=== PATIENT | female | born 1975 | race Caucasian/White ===

== ENCOUNTER 2017-01-08 10:31 | Emergency (ER) | payer OTHER ==
[~2017-01-08] VITALS: Ht 172.7 cm; Wt 133.8 kg
[~2017-01-08 10:31] MED LIST: CIPROFLOXACIN500 M1 PO; IRON325 PO; LIDOCAINE VISC100 ML MM; NOHOMEMEDICATIONS; ONE DAILY MULT1 EAC2 PO; TRAMADOL 50 MG50 MG PO
== END 2017-01-08 12:59 | disposition home or self-care (01) ==
LOC: ER 10:31
DX: S83.8X2A Sprain of other specified parts of left knee, initial encounter (principal); Z91.040 Latex allergy status; Z88.0 Allergy status to penicillin; Z88.5 Allergy status to narcotic agent; Z88.8 Allergy status to other drugs, medicaments and biological substances; X50.0XXA Overexertion from strenuous movement or load, initial encounter; Y93.89 Activity, other specified; Y92.89 Other specified places as the place of occurrence of the external cause; Y99.0 Civilian activity done for income or pay

== ENCOUNTER 2017-03-17 01:25 | Emergency (ER) | payer OTHER ==
[~2017-03-17] VITALS: Ht 172.7 cm; Wt 136.1 kg
[2017-03-17] MEDS ORDERED: IBUPROFEN 800800 M1 PO (01:35)
[2017-03-17] MEDS ORDERED: TYLENOL325 MG PO (01:35)
== END 2017-03-17 03:40 | disposition home or self-care (01) ==
LOC: ER 01:25
DX: S90.121A Contusion of right lesser toe(s) without damage to nail, initial encounter (principal); Z98.890 Other specified postprocedural states; N80.9 Endometriosis, unspecified; Z88.0 Allergy status to penicillin; Z91.040 Latex allergy status; Z88.1 Allergy status to other antibiotic agents; Z88.5 Allergy status to narcotic agent; W22.8XXA Striking against or struck by other objects, initial encounter; Y93.89 Activity, other specified; Y92.89 Other specified places as the place of occurrence of the external cause; Y99.8 Other external cause status

== ENCOUNTER 2017-04-11 09:38 | Emergency (ER) | payer OTHER ==
[~2017-04-11] VITALS: Ht 172.7 cm; Wt 140.2 kg
--- NOTE | ~2017-04-11 | EKG ---
[address] [place] [address] ELECTROCARDIOGRAM REPORT Name: CARLOZ ZHU [facility] [id number] Admission: 04/11/17 Attend Phys: Discharge: 04/11/17 Date of : 71 Report #: [id number] THIS REPORT FOR: //name// [facility] ED Test Date: 2017-04-11 Test Time: 10:03:54 Pat Name: CARLOZ ZHU Department: Room: Gender: F Banquet Set Up Person: Gigi MURRELL : 1975 Requested By: Jimena Eagle Order Number: [id number] MD: Kenny Fernandez Measurements Intervals [place] Rate: 68 P: 8 [place]: 173 QRS: 1 QRSD: 103 T: 29 QT: 410 QTc: 437 Interpretive Statements Sinus rhythm Normal tracing Compared to ECG 04/10/2015 00:47:31 No significant changes Electronically Signed On 04-13-2017 13:27:48 CDT by Kenny Fernandez [email or web address] <ELECTRONICALLY SIGNED> By: Kenny Fernandez MD, [facility] 04/13/17 1327 1003 1003 Kenny Fernandez MD, FACC /EPI
[~2017-04-11 09:38] MED LIST changes: +IBUPROFEN 800800 M1 PO; +TYLENOL325 MG PO
[2017-04-11 10:37] LABS: ABSOLUTE NEUTROPHILS 4.8 thou/uL (1.4-8.2); BASOPHILS 1.2 % (0.0-2.0); EOSINOPHILS 2.2 % (0.0-3.0); HEMATOCRIT 38.3 % (37.0-47.0); HEMOGLOBIN 12.9 gm/dL (12.0-15.0); LYMPHOCYTES 37.9 % (24.0-44.0); MCH 29.7 pg (26.0-34.0); MCHC 33.7 g/dL (28.0-37.0); MONOCYTES 8.4 % (1.0-8.0); PLATELET COUNT 331 thou/uL (150-400); POLYS 50.3 % (36.0-66.0); RBC 4.36 mil/uL (4.20-5.00); RDW 14.4 % (10.5-14.5); WBC 10.7 thou/uL (4.0-11.0)
[2017-04-11 10:49] LABS: CALCIUM 8.9 mg/dL (8.5-10.1); CREATININE 0.6 mg/dL (0.6-1.0); POTASSIUM 3.8 mmol/L (3.5-5.1)
[2017-04-11 10:53] LABS: MANUAL DIFF NO
[2017-04-11] MEDS ORDERED: LISINOPRIL5 MG PO (11:06)
== END 2017-04-11 11:45 | disposition home or self-care (01) ==
LOC: ER 09:38
PROVIDERS: Emergency Medicine
DX: I10 Essential (primary) hypertension (principal); Z87.11 Personal history of peptic ulcer disease; Z88.0 Allergy status to penicillin; Z88.1 Allergy status to other antibiotic agents; Z91.040 Latex allergy status; Z88.5 Allergy status to narcotic agent

== ENCOUNTER 2017-08-03 20:43 | Emergency (ER) | payer OTHER ==
[~2017-08-03] VITALS: Ht 172.7 cm; Wt 133.8 kg
[~2017-08-03 20:43] MED LIST changes: +LISINOPRIL5 MG PO
[2017-08-03 21:01] VITALS: BP 178/99
== END 2017-08-03 23:23 | disposition home or self-care (01) ==
LOC: ER 20:43
DX: S93.492A Sprain of other ligament of left ankle, initial encounter (principal); N80.9 Endometriosis, unspecified; Z91.040 Latex allergy status; Z88.0 Allergy status to penicillin; Z88.5 Allergy status to narcotic agent; Z88.1 Allergy status to other antibiotic agents; X50.1XXA Overexertion from prolonged static or awkward postures, initial encounter; Y93.89 Activity, other specified; Y92.89 Other specified places as the place of occurrence of the external cause; Y99.8 Other external cause status

== ENCOUNTER 2017-09-03 08:22 | Emergency (ER) | payer OTHER ==
[~2017-09-03] VITALS: Ht 172.7 cm; Wt 131.5 kg
--- NOTE | ~2017-09-03 | EKG ---
[place] [address] [facility] [employer] [address] ELECTROCARDIOGRAM REPORT Name: CARLOZ ZHU [facility] [id number] Admission: 09/03/17 Attend Phys: Discharge: Date of : 71 Report #: [id number] THIS REPORT FOR: //name// [facility] ED Test Date: 2017-09-03 Test Time: 08:47:07 Pat Name: CARLOZ ZHU Department: Room: Gender: F Maintenance Team Member: KO : 1975 Requested By: Socrates Montgomery Order Number: [id number] MD: Kenny Fernandez Measurements Intervals [place] Rate: 69 P: 8 [place]: 169 QRS: 0 QRSD: 103 T: 28 QT: 413 QTc: 443 Interpretive Statements Sinus rhythm No significant abnormality Compared to ECG 04/11/2017 10:03:54 No significant changes Electronically Signed On 09-03-2017 9:12:25 [employer] by Kenny Fernandez [email or web address] <ELECTRONICALLY SIGNED> By: Kenny Fernandez MD, [facility] 09/03/17 0912 0847 0847 Kenny Fernandez MD, FACC /EPI
[2017-09-03 09:12] LABS: ABSOLUTE NEUTROPHILS 3.6 thou/uL (1.4-8.2); BASOPHILS 0.8 % (0.0-2.0); EOSINOPHILS 2.7 % (0.0-3.0); HEMATOCRIT 41.2 % (37.0-47.0); HEMOGLOBIN 13.5 gm/dL (12.0-15.0); LYMPHOCYTES 36.6 % (24.0-44.0); MCH 28.7 pg (26.0-34.0); MCHC 32.9 g/dL (28.0-37.0); MCV 87.1 fL (80.0-100.0); MONOCYTES 6.3 % (1.0-8.0); PLATELET COUNT 323 thou/uL (150-400); POLYS 53.6 % (36.0-66.0); RBC 4.72 mil/uL (4.20-5.00); RDW 14.5 % (10.5-14.5); WBC 6.7 thou/uL (4.0-11.0)
[2017-09-03 09:22] LABS: ANION GAP 7 mmol/L (7-16); BUN 15 mg/dL (7-18); CHLORIDE 107 mmol/L (98-107); CO2 29 mmol/L (21-32); CREATININE 0.7 mg/dL (0.6-1.0); GLUCOSE 105 mg/dL (74-106); SODIUM 143 mmol/L (136-145)
[2017-09-03 09:27] LABS: TROPONIN-I < 0.04 ng/mL (<0.06)
[2017-09-03] MEDS ORDERED: LISINOPRIL5 MG PO (11:50)
[2017-09-03 12:33] VITALS: BP 103/81
== END 2017-09-03 12:35 | disposition home or self-care (01) ==
LOC: ER 08:22
PROVIDERS: Nurse Practitioner
DX: I10 Essential (primary) hypertension (principal); Z88.0 Allergy status to penicillin; Z88.5 Allergy status to narcotic agent; Z91.040 Latex allergy status; Z88.8 Allergy status to other drugs, medicaments and biological substances